=== PATIENT | female | born 1950 | race American Indian/Alaskan Native ===

== ENCOUNTER 2018-06-29 09:19 | Emergency (ER) | payer MEDICARE ==
--- NOTE | 2018-06-29 09:39 | Cat Scan Report ---
CT HEAD WITHOUT CONTRAST: HISTORY: Neurological deficits, stroke. TECHNIQUE: Sequential 2.5mm CT images. COMPARISON: No recent comparison. FINDINGS: Cerebral Parenchyma: A hyperdense right MCA is identified consistent with a hyperacute right MCA stroke. No obvious parenchymal findings are identified at this time. The supratentorial brain is within normal limits otherwise. Cerebellum: Chronic 1 cm infarct is suspected in the lateral right cerebellum. The remainder of the posterior fossa is unremarkable. Brainstem: Within normal limits. Ventricles: Normal. Sella: Normal. Extra-axial spaces: Normal. Basal Cisterns: Normal. Intracranial Hemorrhage: None. Midline Shift: None. Calvarium: Normal. Sinuses: Normal. Mastoid Air Cells: Normal. Visualized Orbits: Normal. IMPRESSION: Hyperdense right MCA consistent with a hyperacute right MCA infarct. No parenchymal findings or hemorrhage are identified at this time. Chronic 1 cm right cerebellar infarct. These findings were discussed with Dr. Chong in the emergency department at 0932 hours.
[2018-06-29] MEDS ORDERED: ACTIVASE ONE (09:41)
[2018-06-29 09:50] LABS: Basophils % (Auto) 0.8 % (0.0-1.8); Eosinophils # (Auto) 0.2 K/mm3 (0.0-0.4); Eosinophils % (Auto) 3.8 % (0.0-4.3); Hematocrit 40.9 % (30.3-42.9); Hemoglobin 13.6 gm/dl (10.1-14.3); Lymphocytes # (Auto) 2.2 K/mm3 (1.2-5.4); Lymphocytes % (Auto) 39.9 % (13.4-35.0); Mean Corpuscular HGB Conc 33 % (30-34); Mean Corpuscular Volume 84 fl (79-97); Monocytes # (Auto) 0.5 K/mm3 (0.0-0.8); Monocytes % (Auto) 9.7 % (0.0-7.3); Platelet Count 200 K/mm3 (140-440); Red Blood Count 4.88 M/mm3 (3.65-5.03); Red Cell Distribution Width 13.9 % (13.2-15.2)
--- NOTE | 2018-06-29 09:54 | Emergency Department Report ---
ED Neuro Deficit HPI - General Chief Complaint: Neuro Symptoms/Deficit Stated Complaint: POSS STROKE Time Seen by Provider: 06/29/18 09:19 Source: patient, EMS Mode of arrival: Stretcher Limitations: No Limitations, Other - History of Present Illness Initial Comments: Patient is a 67-year-old female that presents emergency room with left-sided weakness. Last known well time 8:30 this morning. Patient answered questions appropriately. Patient denies chest pain. Patient denies headache. Patient denies shortness of breath. Patient denies nausea vomiting. Patient denies dizziness. Patient does not have a history of stroke. Patient does have a history of TIA. Patient is taking aspirin. Patient is not taking any anticoagulants. Report received from EMS. -: Sudden Location: left face, left arm, left leg Presenting Symptoms: Present: Weak/Paralyzed One Side, Facial Droop/Numbness History of same: No Place: home Severity: severe Quality: constant Improves With: none Worsens With: none On Anticoagulants: No Context: sudden onset Associated Symptoms: weakness. denies: confusion, chest pain, cough, diaphoresis, fever/chills, headaches, loss of appetite, malise, nausea/vomiting, vertigo, seizures, shortness of breath, syncope Treatments Prior to Arrival: none - Related Data Home Medications: Home Medications Medication Instructions Recorded Confirmed Last Taken Cyclobenzaprine [Flexeril] 5 mg PO TID PRN 06/29/18 06/29/18 Unknown Levothyroxine [Synthroid] 75 mcg PO QAM 06/29/18 06/29/18 Unknown Lisinopril/Hydrochlorothiazide 1 tab PO QDAY 06/29/18 06/29/18 Unknown [Zestoretic 10-12.5 mg] Meloxicam [Mobic] 15 mg PO QDAY 06/29/18 06/29/18 Unknown Pravastatin [Pravachol] 80 mg PO QHS 06/29/18 06/29/18 Unknown metFORMIN XR [Glucophage XR] 2,000 mg PO QDAY 06/29/18 06/29/18 Unknown Allergies/Adverse Reactions: Allergies Allergy/AdvReac Type Severity Reaction Status Date / Time Penicillins Allergy Unknown Verified 06/29/18 10:29 Sulfa (Sulfonamide Allergy Unknown Verified 06/29/18 10:29 Antibiotics) ED Review of Systems ROS: Stated complaint: POSS STROKE Other details as noted in HPI Constitutional: denies: chills, fever Eyes: denies: eye pain, eye discharge, vision change ENT: denies: ear pain, throat pain Respiratory: denies: cough, shortness of breath, wheezing Cardiovascular: denies: chest pain, palpitations Endocrine: no symptoms reported Gastrointestinal: denies: abdominal pain, nausea, diarrhea Genitourinary: denies: urgency, dysuria, discharge Musculoskeletal: denies: back pain, joint swelling, arthralgia Skin: denies: rash, lesions Neurological: weakness. denies: headache Psychiatric: denies: anxiety, depression Hematological/Lymphatic: denies: easy bleeding, easy bruising ED Past Medical Hx - Past Medical History Previous Medical History?: Yes Hx Hypertension: Yes Hx Diabetes: Yes Hx Arthritis: Yes Additional medical history: tia. oa. hld - Surgical History Past Surgical History?: No - Family History Family history: no significant - Social History Smoking Status: Never Smoker Substance Use Type: None - Medications Home Medications: Home Medications Medication Instructions Recorded Confirmed Last Taken Type Cyclobenzaprine [Flexeril] 5 mg PO TID PRN 06/29/18 06/29/18 Unknown History Levothyroxine [Synthroid] 75 mcg PO QAM 06/29/18 06/29/18 Unknown History Lisinopril/Hydrochlorothiazide 1 tab PO QDAY 06/29/18 06/29/18 Unknown History [Zestoretic 10-12.5 mg] Meloxicam [Mobic] 15 mg PO QDAY 06/29/18 06/29/18 Unknown History Pravastatin [Pravachol] 80 mg PO QHS 06/29/18 06/29/18 Unknown History metFORMIN XR [Glucophage XR] 2,000 mg PO QDAY 06/29/18 06/29/18 Unknown History ED Neuro Physical Exam - General Limitations: No Limitations General appearance: alert, in no apparent distress Suspected Stroke: Yes - Head Head exam: Present: atraumatic, normocephalic - Eye Eye exam: Present: normal appearance, PERRL Pupils: Present: normal accommodation - ENT ENT exam: Present: mucous membranes moist - Neck Neck exam: Present: normal inspection - Respiratory Respiratory exam: Present: normal lung sounds bilaterally. Absent: respiratory distress - Cardiovascular Cardiovascular Exam: Present: regular rate, normal rhythm. Absent: systolic murmur, diastolic murmur, rubs, gallop - GI/Abdominal GI/Abdominal exam: Present: soft, normal bowel sounds - Extremities Exam Extremities exam: Present: normal inspection - Back Exam Back exam: Present: normal inspection - Neurological Exam Neurological exam: Present: alert, oriented X3 - NIHSS Assessment Interval: Baseline 1a. Level of Consciousness: alert/keenly responsive 1b. LOC Questions: answers both correctly 1c. LOC Commands: performs tasks correctly 2. Best Gaze: forced deviation 3. Visual: partial hemianopia 4. Facial Palsy: partial paralysis 5b. Motor Arm Right: no drift 5a. Motor Arm Left: no movement 6a. Motor Leg Left: no movement 6b. Motor Leg Right: no drift 7. Limb Ataxia: absent 8. Sensory: severe/total sensory loss 9. Best Language: no aphasia 10. Dysarthria: mild/moderate dysarthria 11. Extinction/Inattention: visual/tactile inattention Total Score: 17 Stroke Severity: Moderate to Severe Stroke - Psychiatric Psychiatric exam: Present: normal affect, normal mood - Skin Skin exam: Present: warm, dry, intact, normal color. Absent: rash ED Course Vital Signs 06/29/18 06/29/18 06/29/18 09:48 09:50 09:54 Temperature Pulse Rate 66 66 Respiratory Rate Blood Pressure 148/98 148/98 Blood Pressure [Left] O2 Sat by Pulse 93 Oximetry 06/29/18 06/29/18 06/29/18 10:00 10:36 10:41 Temperature Pulse Rate 67 65 64 Respiratory 20 12 14 Rate Blood Pressure 117/74 117/74 Blood Pressure 117/74 [Left] O2 Sat by Pulse 93 100 100 Oximetry 06/29/18 06/29/18 10:46 10:48 Temperature 97.5 F L Pulse Rate 64 Respiratory 22 14 Rate Blood Pressure 119/101 Blood Pressure [Left] O2 Sat by Pulse 100 100 Oximetry - Reevaluation(s) Reevaluation #1: Initial evaluation done. Culture initiated prior to patient arriving in the ER. Last normal well time 8:30 AM this morning. Patient had been notable left- sided weakness. Patient sent to CT for CT of the head. [facility] neurologist consulted. 06/29/18 09:17 Neurologist seeing the patient 06/29/18 09:25 Based On clinical findings and recommendation of neurologists, TPA is indicated. Patient will be given TPA. states that after the TPA is given and all of our studies are done, he wants the patient transferred to [facility]. 06/29/18 09:[address] for CTA. Patient already given TPA. 06/29/18 10:12 Patient back in room from CTA. Patient still not moving left side. 06/29/18 10:33 Patient has not clinically improved. Helicopter is here to take patient to [facility] 06/29/18 11:01 - Consultations Consultation #1: [facility]- neurologist consulted 06/29/18 09:18 Discussed case with neurologist. Patient started being given TPA bolus and was started on TPA drip. Neurologist states he will call [facility] in order to transfer the patient there. 06/29/18 9:43 I discussed case with neurologist. [facility] has accepted the patient to the stroke team, Dr Zaina Monique 06/29/18 09:55 Consultation #2: [facility] called with update of CTA 06/29/18 11:16 - Lab Data Result diagrams: 06/29/18 09:32 06/29/18 09:32 Lab Results 06/29/18 06/29/18 06/29/18 Range/Units 09:32 09:32 09:32 WBC 5.4 (4.5-11.0) K/mm3 RBC 4.88 (3.65-5.03) M/mm3 Hgb 13.6 (10.1-14.3) gm/dl Hct 40.9 (30.3-42.9) % MCV 84 (79-97) fl MCH 28 (28-32) pg MCHC 33 (30-34) % RDW 13.9 (13.2-15.2) % Plt Count 200 (140-440) K/mm3 Lymph % (Auto) 39.9 H (13.4-35.0) % [place] % (Auto) 9.7 H (0.0-7.3) % Eos % (Auto) 3.8 (0.0-4.3) % Baso % (Auto) 0.8 (0.0-1.8) % Lymph # 2.2 (1.2-5.4) K/mm3 [place] # 0.5 (0.0-0.8) K/mm3 Eos # 0.2 (0.0-0.4) K/mm3 Baso # 0.0 (0.0-0.1) K/mm3 Seg Neutrophils % 45.8 (40.0-70.0) % Seg Neutrophils # 2.5 (1.8-7.7) K/mm3 PT 12.1 L (12.2-14.9) Sec. INR 0.85 L (0.87-1.13) APTT 22.5 L (24.2-36.6) Sec. Thrombin Time 17.6 (15.1-19.6) Sec. Sodium 140 (137-145) mmol/L Potassium 4.1 (3.6-5.0) mmol/L Chloride 106.1 (98-107) mmol/L Carbon Dioxide 23 (22-30) mmol/L Anion Gap 15 mmol/L BUN 19 H (7-17) mg/dL Creatinine 0.7 (0.7-1.2) mg/dL Estimated GFR > 60 ml/min BUN/Creatinine Ratio 27 % Glucose 125 H (65-100) mg/dL POC Glucose (70-105) Calcium 9.0 (8.4-10.2) mg/dL Troponin T < 0.010 (0.00-0.029) ng/mL 06/29/18 Range/Units 09:45 WBC (4.5-11.0) K/mm3 RBC (3.65-5.03) M/mm3 Hgb (10.1-14.3) gm/dl Hct (30.3-42.9) % MCV (79-97) fl MCH (28-32) pg MCHC (30-34) % RDW (13.2-15.2) % Plt Count (140-440) K/mm3 Lymph % (Auto) (13.4-35.0) % [place] % (Auto) (0.0-7.3) % Eos % (Auto) (0.0-4.3) % Baso % (Auto) (0.0-1.8) % Lymph # (1.2-5.4) K/mm3 [place] # (0.0-0.8) K/mm3 Eos # (0.0-0.4) K/mm3 Baso # (0.0-0.1) K/mm3 Seg Neutrophils % (40.0-70.0) % Seg Neutrophils # (1.8-7.7) K/mm3 PT (12.2-14.9) Sec. INR (0.87-1.13) APTT (24.2-36.6) Sec. Thrombin Time (15.1-19.6) Sec. Sodium (137-145) mmol/L Potassium (3.6-5.0) mmol/L Chloride (98-107) mmol/L Carbon Dioxide (22-30) mmol/L Anion Gap mmol/L BUN (7-17) mg/dL Creatinine (0.7-1.2) mg/dL Estimated GFR ml/min BUN/Creatinine Ratio % Glucose (65-100) mg/dL POC Glucose 117 H (70-105) Calcium (8.4-10.2) mg/dL Troponin T (0.00-0.029) ng/mL - EKG Data -: EKG Interpreted by Pr EKG shows normal: sinus rhythm, axis, intervals, QRS complexes, ST-T waves Rate: normal - Radiology Data Radiology results: report reviewed, image reviewed CT HEAD WITHOUT CONTRAST: HISTORY: Neurological deficits, stroke. TECHNIQUE: Sequential 2.5mm CT images. COMPARISON: No recent comparison. FINDINGS: Cerebral Parenchyma: A hyperdense right MCA is identified consistent with a hyperacute right MCA stroke. No obvious parenchymal findings are identified at this time. The supratentorial brain is within normal limits otherwise. Cerebellum: Chronic 1 cm infarct is suspected in the lateral right cerebellum. The remainder of the posterior fossa is unremarkable. Brainstem: Within normal limits. Ventricles: Normal. Sella: Normal. Extra-axial spaces: Normal. Basal Cisterns: Normal. Intracranial Hemorrhage: None. Midline Shift: None. Calvarium: Normal. Sinuses: Normal. Mastoid Air Cells: Normal. Visualized Orbits: Normal. IMPRESSION: Hyperdense right MCA consistent with a hyperacute right MCA infarct. No parenchymal findings or hemorrhage are identified at this time. Chronic 1 cm right cerebellar infarct. These findings were discussed with Dr. Chong in the emergency department at 0932 hours. CTA NECK: CTA HEAD: HISTORY: CVA. TECHNIQUE: Helical CT following IV contrast. Sagittal and coronal reformatted images. 3D volume rendering technique. Stenosis was calculated using NASCET criteria with the distal ICA being standard diameter. FINDINGS: Limited images of the upper lung zone demonstrates nonocclusive pulmonary emboli leading to the left upper lobe. There is complete occlusion of the distal right ICA and proximal right MCA. There is filling of the right AXEL via a patent anterior communicating artery. There is also complete occlusion of the left ICA. There is reconstitution of flow in the terminus of the left ICA via collateral flow around the [place] of [place]. The left AXEL and MCA are patent with no significant stenosis. The vertebrobasilar system is patent with less than 20% stenosis. Large bilateral posterior communicating arteries are identified. No evidence for aneurysm or dissection. 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 Complete occlusion of the proximal right MCA. A few small nonocclusive pulmonary emboli are partially imaged in the left upper lobe. - Medical Decision Making Patient is a 67-year-old female that presents emergency room for stroke symptoms. Patient found to have left-sided weakness and left-sided facial droop. Patient's last known well time 8:30 this morning. Patient seen by neurology. Patient given TPA. Patient found to have a CVA in the right MCA region. Patient will be transferred to [facility] for endovascular procedure. Patient has been accepted by the stroke team there. - Differential Diagnosis cva. weakness - Core Measures AMI Core Measures Followed: Yes Critical Care Time: Yes Critical care attestation.: If time is entered above; I have spent that time in minutes in the direct care of this critically ill patient, excluding procedure time. Critical Care Time: 80 minutes ED Disposition Clinical Impression: Left-sided weakness, Facial droop Stroke Qualifiers: CVA mechanism: occlusion Precerebral and cerebral artery: middle cerebral artery Laterality of affected vessel: right Qualified Code(s): I63.511 - Cerebral infarction due to unspecified occlusion or stenosis of right middle cerebral artery Pulmonary emboli Qualifiers: Pulmonary embolism type: other Chronicity: acute Acute cor pulmonale presence: with acute cor pulmonale Qualified Code(s): I26.09 - Other pulmonary embolism with acute cor pulmonale Disposition: DC/TX-70 ANOTHER TYPE HLTHCARE Is pt being admited?: No Does the pt Need Aspirin: No Condition: Critical Time of Disposition: 11:21
[2018-06-29 10:01] LABS: INR 0.85 (0.87-1.13); Partial Thromboplastin Time 22.5 Sec. (24.2-36.6); Thrombin Time 17.6 Sec. (15.1-19.6)
[2018-06-29 10:04] LABS: BUN/Creatinine Ratio 27; Blood Urea Nitrogen 19 mg/dL (7-17); Hemolysis Index 5
[2018-06-29] MEDS ORDERED: ACTIVASE IV ONE ×2 (10:26)
--- NOTE | 2018-06-29 10:38 | Emergency Department Report ---
ED Neuro Deficit HPI - General Chief Complaint: Neuro Symptoms/Deficit Stated Complaint: POSS STROKE Time Seen by Provider: 06/29/18 09:19 Source: patient, EMS Mode of arrival: Stretcher Limitations: No Limitations - History of Present Illness Initial Comments: [facility] TeleNeurology Consult Services Impression: Stroke. Right mca thrombosis. Spoke to [facility] ( wanted transfer to [place] only), the patient has been accepted. She has right dense mca Differential Diagnosis: 1. Cardioembolic stroke 2. Small vessel disease/lacune 3. Thromboembolic, [id number] mechanism 4. Hypercoagulable state-related infarct 5. Transient ischemic attack 6. Thrombotic mechanism, large artery disease Comments: Door time: 9:19 [facility] contacted: [phone] [facility] at bedside: 922 NIHSS assessment time: 930 Verbal tpa order: 931 Needle time: 948- getting official weight, waiting for imaging to be available Verbal Consent to tPA: I discussed the contraindications with the patient/family. The patient denies any history of severe head trauma within the last 3 months, prior intracranial hemorrhage, structural gastrointestinal malignancy, intra- axial neoplasm, unsecured aneurysm greater than 10mm, intracranial or intraspinal surgery within the past 3 months, recent gastrointestinal or urinary tract hemorrhage within the previous 21 days, symptoms suggestive of subarachnoid hemorrhage, infective endocarditis, active internal bleeding with the exception of certain types of vaginal bleeding, or known or suspected aortic arch dissection. The patient does not have an INR greater than 1.7, PT greater than 15 seconds, or a pTT greater than 40 seconds, or platelet count less than 100,[address] does not show extensive regions hypodensity (multilobar infarct) and there is no evidence of acute hemorrhage. The patient is not currently on IV antiplatelet agents, therapeutic dose ofLMWH, or has used a direct thrombin inhibitor or direct factor Xa inhibitor. I have explained to the patient/family/guardian the nature of the patients condition, the use of tPA fibrinolytic agent, and the benefits to be reasonably expected compared with alternative approaches. I have discussed the likelihood of major risks or complications of this procedure including (if applicable) but not limited to loss of limb function, brain damage, paralysis, hemorrhage, infection, complications from transfusion of blood components, drug reactions, blood clots and loss of life. I have also indicated that with any procedure there is always the possibility of an unexpected complication. I have explained the risks which include: 1. , Stroke or permanent neurologic injury (paralysis, coma, etc) 2. Worsening of stroke symptoms from swelling or bleeding in the brain 3. Bleeding in other parts of the body 4. Need for blood transfusions to replace blood or clotting factors 5. Allergic reaction to medications 6. Other unexpected complications All questions were answered and the patient/family/guardian express understanding of the treatment plan and consent to the procedure. Our recommendations are outlined below. We will be seeing the patient back in follow up as noted. Recommendations: IV tPA dose = 8.1mg bolus and 73.05mg drip Routine post tPA monitoring including neuro checks and blood pressure control during/after treatment Monitor blood pressure Check blood pressure and NIHSS every 15 min for 2 h, then every 30 min for 6 h, and finally every hour for 16 h Systolic greater than 180 OR diastolic greater than 105: Option 1: Labetalol 10 mg IV for 1 - 2 min May repeat or double labetalol every 10 min to maximum dose of 300 mg, or give initial labetalol dose, then start labetalol drip at 2 - 8 mg/min. Option 2: Nicardipine 5 mg/h IV infusion as initial dose and titrate to desired effect by increasing 2.5 mg/h every 5 min to maximum of 15 mg/h; If blood pressure is not controlled by labetolol or nicardipine, consider sodium nitroprusside. She will be transferred to [place] [facility] for neuro ir. Admission to ICU CT brain 24 hours post tPA NPO until swallowing screen performed and passed No antiplatelet agents or anticoagulants (including heparin for DVT prophylaxis) in first 24 hours No Block catheter, nasogastric tube, arterial catheter or central venous catheter for 24 hr, unless absolutely necessary Telemetry Inpatient Neurology Consultation Stroke evaluation as per inpatient neurology recommendations Discussed with ED MD CC left sided weakness History of Present Illness Patient is a 67 year old who comes to the hospital for left sided weakness. The last time she was seen normal was around 8am. Within the hour, the then noticed that she could not stand on her feet and was leaning towards the left. This has not happened before, she does not take any anticoagulants. Ct head without contrast: Right dense mca sign, aspects 10/10. Wet read from rad Medical Decision Making: - Extensive number of diagnosis or management options are considered above. - Extensive amount of complex data reviewed. - High risk of complication and/or morbidity or mortality are associated with differential diagnostic considerations above. - There may be Uncertain outcome and increased probability of prolonged functional impairment or high probability of severe prolonged functional impairment associated with some of these differential diagnosis. Medical Data Reviewed: 1.Data reviewed include clinical labs, radiology, Medical Tests; 2.Tests results discussed w/performing or interpreting physician; 3.Obtaining/reviewing old medical records; 4.Obtaining case history from another source; 5.Independent review of image, tracing or specimen. Patient/family was informed the Neurology Consult would happen via telehealth (remote video) and consented to receiving care in this manner. Location: left face, left arm, left leg History of same: No Place: home Severity: severe Quality: constant Improves With: none Worsens With: none On Anticoagulants: No Treatments Prior to Arrival: none - Related Data Home Medications: Home Medications Medication Instructions Recorded Confirmed Last Taken Cyclobenzaprine [Flexeril] 5 mg PO TID PRN 06/29/18 06/29/18 Unknown Levothyroxine [Synthroid] 75 mcg PO QAM 06/29/18 06/29/18 Unknown Lisinopril/Hydrochlorothiazide 1 tab PO QDAY 06/29/18 06/29/18 Unknown [Zestoretic 10-12.5 mg] Meloxicam [Mobic] 15 mg PO QDAY 06/29/18 06/29/18 Unknown Pravastatin [Pravachol] 80 mg PO QHS 06/29/18 06/29/18 Unknown metFORMIN XR [Glucophage XR] 2,000 mg PO QDAY 06/29/18 06/29/18 Unknown Allergies/Adverse Reactions: Allergies Allergy/AdvReac Type Severity Reaction Status Date / Time Penicillins Allergy Unknown Verified 06/29/18 10:29 Sulfa (Sulfonamide Allergy Unknown Verified 06/29/18 10:29 Antibiotics) ED Review of Systems ROS: Stated complaint: POSS STROKE Other details as noted in HPI Constitutional: denies: chills, fever Eyes: denies: eye pain, eye discharge, vision change ENT: denies: ear pain, throat pain Respiratory: denies: cough, shortness of breath, wheezing Cardiovascular: denies: chest pain, palpitations Endocrine: no symptoms reported Gastrointestinal: denies: abdominal pain, nausea, diarrhea Genitourinary: denies: urgency, dysuria, discharge Musculoskeletal: denies: back pain, joint swelling, arthralgia Skin: denies: rash, lesions Neurological: weakness. denies: headache Psychiatric: denies: anxiety, depression Hematological/Lymphatic: denies: easy bleeding, easy bruising ED Past Medical Hx - Past Medical History Previous Medical History?: Yes Hx Hypertension: Yes Additional medical history: tia. high cholesterol. hypothyroidism - Surgical History Past Surgical History?: No - Social History Smoking Status: Never Smoker Substance Use Type: None - Medications Home Medications: Home Medications Medication Instructions Recorded Confirmed Last Taken Type Cyclobenzaprine [Flexeril] 5 mg PO TID PRN 06/29/18 06/29/18 Unknown History Levothyroxine [Synthroid] 75 mcg PO QAM 06/29/18 06/29/18 Unknown History Lisinopril/Hydrochlorothiazide 1 tab PO QDAY 06/29/18 06/29/18 Unknown History [Zestoretic 10-12.5 mg] Meloxicam [Mobic] 15 mg PO QDAY 06/29/18 06/29/18 Unknown History Pravastatin [Pravachol] 80 mg PO QHS 06/29/18 06/29/18 Unknown History metFORMIN XR [Glucophage XR] 2,000 mg PO QDAY 06/29/18 06/29/18 Unknown History ED Neuro Physical Exam - General Limitations: No Limitations General appearance: alert, in no apparent distress Suspected Stroke: Yes - NIHSS Assessment Interval: Baseline 1a. Level of Consciousness: alert/keenly responsive 1b. LOC Questions: answers both correctly 1c. LOC Commands: performs tasks correctly 2. Best Gaze: forced deviation 3. Visual: complete hemianopia 4. Facial Palsy: partial paralysis 5b. Motor Arm Right: no drift 5a. Motor Arm Left: no movement 6a. Motor Leg Left: no movement 6b. Motor Leg Right: no drift 7. Limb Ataxia: absent 8. Sensory: severe/total sensory loss 9. Best Language: no aphasia 10. Dysarthria: mild/moderate dysarthria 11. Extinction/Inattention: complete neglect Total Score: 19 Stroke Severity: Moderate to Severe Stroke - Lab Data Result diagrams: 06/29/18 09:32 06/29/18 09:32 Lab Results 06/29/18 06/29/18 06/29/18 Range/Units 09:32 09:32 09:32 WBC 5.4 (4.5-11.0) K/mm3 RBC 4.88 (3.65-5.03) M/mm3 Hgb 13.6 (10.1-14.3) gm/dl Hct 40.9 (30.3-42.9) % MCV 84 (79-97) fl MCH 28 (28-32) pg MCHC 33 (30-34) % RDW 13.9 (13.2-15.2) % Plt Count 200 (140-440) K/mm3 Lymph % (Auto) 39.9 H (13.4-35.0) % [place] % (Auto) 9.7 H (0.0-7.3) % Eos % (Auto) 3.8 (0.0-4.3) % Baso % (Auto) 0.8 (0.0-1.8) % Lymph # 2.2 (1.2-5.4) K/mm3 [place] # 0.5 (0.0-0.8) K/mm3 Eos # 0.2 (0.0-0.4) K/mm3 Baso # 0.0 (0.0-0.1) K/mm3 Seg Neutrophils % 45.8 (40.0-70.0) % Seg Neutrophils # 2.5 (1.8-7.7) K/mm3 PT 12.1 L (12.2-14.9) Sec. INR 0.85 L (0.87-1.13) APTT 22.5 L (24.2-36.6) Sec. Thrombin Time 17.6 (15.1-19.6) Sec. Sodium 140 (137-145) mmol/L Potassium 4.1 (3.6-5.0) mmol/L Chloride 106.1 (98-107) mmol/L Carbon Dioxide 23 (22-30) mmol/L Anion Gap 15 mmol/L BUN 19 H (7-17) mg/dL Creatinine 0.7 (0.7-1.2) mg/dL Estimated GFR > 60 ml/min BUN/Creatinine Ratio 27 % Glucose 125 H (65-100) mg/dL POC Glucose (70-105) Calcium 9.0 (8.4-10.2) mg/dL Troponin T < 0.010 (0.00-0.029) ng/mL 06/29/18 Range/Units 09:45 WBC (4.5-11.0) K/mm3 RBC (3.65-5.03) M/mm3 Hgb (10.1-14.3) gm/dl Hct (30.3-42.9) % MCV (79-97) fl MCH (28-32) pg MCHC (30-34) % RDW (13.2-15.2) % Plt Count (140-440) K/mm3 Lymph % (Auto) (13.4-35.0) % [place] % (Auto) (0.0-7.3) % Eos % (Auto) (0.0-4.3) % Baso % (Auto) (0.0-1.8) % Lymph # (1.2-5.4) K/mm3 [place] # (0.0-0.8) K/mm3 Eos # (0.0-0.4) K/mm3 Baso # (0.0-0.1) K/mm3 Seg Neutrophils % (40.0-70.0) % Seg Neutrophils # (1.8-7.7) K/mm3 PT (12.2-14.9) Sec. INR (0.87-1.13) APTT (24.2-36.6) Sec. Thrombin Time (15.1-19.6) Sec. Sodium (137-145) mmol/L Potassium (3.6-5.0) mmol/L Chloride (98-107) mmol/L Carbon Dioxide (22-30) mmol/L Anion Gap mmol/L BUN (7-17) mg/dL Creatinine (0.7-1.2) mg/dL Estimated GFR ml/min BUN/Creatinine Ratio % Glucose (65-100) mg/dL POC Glucose 117 H (70-105) Calcium (8.4-10.2) mg/dL Troponin T (0.00-0.029) ng/mL Critical care attestation.: If time is entered above; I have spent that time in minutes in the direct care of this critically ill patient, excluding procedure time. ED Disposition Clinical Impression: Stroke Disposition: [id number]/TX-70 ANOTHER TYPE [facility]THCARE Is pt being admited?: No Condition: Stable
[2018-06-29 10:55] VITALS: BP 119/101
[2018-06-29] MEDS ORDERED: NACL 0.9% IV ONE (11:00)
--- NOTE | 2018-06-29 11:11 | Cat Scan Report ---
CTA NECK: CTA HEAD: HISTORY: CVA. TECHNIQUE: Helical CT following IV contrast. Sagittal and coronal reformatted images. 3D volume rendering technique. Stenosis was calculated using NASCET criteria with the distal ICA being standard diameter. FINDINGS: Limited images of the upper lung zone demonstrates nonocclusive pulmonary emboli leading to the left upper lobe. There is complete occlusion of the distal right ICA and proximal right MCA. There is filling of the right AXEL via a patent anterior communicating artery. There is also complete occlusion of the left ICA. There is reconstitution of flow in the terminus of the left ICA via collateral flow around the [place]. The left AXEL and MCA are patent with no significant stenosis. The vertebrobasilar system is patent with less than 20% stenosis. Large bilateral posterior communicating arteries are identified. No evidence for aneurysm or dissection. 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 Complete occlusion of the proximal right MCA. A few small nonocclusive pulmonary emboli are partially imaged in the left upper lobe. These findings were discussed with Dr. Chong in the emergency department at 1100 hrs.
== END 2018-06-29 11:09 | disposition other institution (70) ==
LOC: ED 09:19
DX: I63.511 Cerebral infarction due to unspecified occlusion or stenosis of right middle cerebral artery (principal); I26.99 Other pulmonary embolism without acute cor pulmonale; I10 Essential (primary) hypertension; E11.9 Type 2 diabetes mellitus without complications; M19.90 Unspecified osteoarthritis, unspecified site; Z88.0 Allergy status to penicillin; Z88.2 Allergy status to sulfonamides; Z86.73 Personal history of transient ischemic attack (TIA), and cerebral infarction without residual deficits
CPT/HCPCS: 36415; 70450; 70496; 70498; 80048; 82962; 84484; 85025; 85610; 85670; 85730; 93005; 93010; 96374; 99291; 99292; J2997; Q9967